=== PATIENT | female | born 1990 | race African-American/Black ===

== ENCOUNTER 2016-11-14 14:29 | Inpatient (IN) | payer SELFPAY ==
[2016-11-14 15:39] LABS: BASOPHILS 0.1 % (0-2); EOSINOPHILS 0.4 % (0-7); HEMATOCRIT 33.2 % (36.0-48.0); HEMOGLOBIN 10.9 g/dL (12-16); IMMATURE GRANULOCYTES 0.2 % (0-5); LYMPHOCYTES 6.7 % (15-50); MCH 26.7 pg (26.0-34.0); MCHC 32.8 g/dL (31.0-37.0); MCV 81.4 fL (80.0-100.0); MEAN PLATELET VOLUME 9.4 fL (7.4-10.4); MONOCYTES 5.2 % (2-11); NEUTROPHILS 87.4 % (40-80); PLATELET COUNT 245 10x3/uL (130-400); RBC 4.08 10x6/uL (4.00-5.40); RDW 18.3 % (11.5-14.5); WBC 10.4 10x3/uL (4.8-10.8)
[2016-11-14 15:56] LABS: ALBUMIN 3.3 g/dL (3.4-5.0); ALKALINE PHOSPHATASE 99 U/L (46-116); ALT (SGPT) 109 U/L (10-68); BILIRUBIN - TOTAL 0.37 mg/dL (0.2-1.3); CALC OSMOLALITY 275 mosm/kg (275-300); CALCIUM 8.5 mg/dL (8.5-10.1); CARBON DIOXIDE 22.8 mmol/L (21.0-32.0); CHLORIDE - SERUM 104 mmol/L (98-107); CREATININE - SERUM 0.8 mg/dL (0.6-1.3); GLUCOSE 129 mg/dL (74-106); POTASSIUM - SERUM 3.6 mmol/L (3.5-5.1); PROTEIN - SERUM 7.5 g/dL (6.4-8.2); SODIUM 138 mmol/L (136-145); UREA NITROGEN 8 mg/dL (7-18); eGFR NON AFRICAN AMERICAN > 90 mL/min (90-120)
[2016-11-14 17:05] LABS: APPEARANCE CLEAR (CLEAR); COLOR YELLOW (YELLOW); NITRITE NEGATIVE (NEGATIVE); SPECIFIC GRAVITY 1.015 (1.005-1.020)
[2016-11-14 17:06] LABS: BILIRUBIN NEGATIVE (NEGATIVE); GLUCOSE NEGATIVE (NEGATIVE); KETONE NEGATIVE (NEGATIVE); PROTEIN NEGATIVE (NEGATIVE); UROBILINOGEN NORMAL (NORMAL)
[2016-11-14 17:09] LABS: UDS - AMPHET NEGATIVE QUAL (NEGATIVE); UDS - BARB NEGATIVE QUAL (NEGATIVE); UDS - BENZO NEGATIVE QUAL (NEGATIVE); UDS - COCAINE NEGATIVE QUAL (NEGATIVE); UDS - OPIATE NEGATIVE QUAL (NEGATIVE); UDS - PCP NEGATIVE QUAL (NEGATIVE); UDS - THC NEGATIVE QUAL (NEGATIVE)
[2016-11-14 17:15] LABS: EPITHELIAL CELLS 0-5 /hpf (0-5); RED CELLS - URINE 0-5 /hpf (0-5); WHITE CELLS - URINE 0-5 /hpf (0-5)
[2016-11-14 17:16] LABS: BACTERIA FEW /hpf (NONE SEEN)
[2016-11-14 17:20] LABS: HCG URINE NEGATIVE (NEGATIVE)
[2016-11-14] MEDS ORDERED: ORTHO TRI-7 DAYSX1 PO (17:52)
[2016-11-14] MEDS ORDERED: FERROUS SULFAT325 MG PO (17:54)
[2016-11-14 17:56] LABS: T4 THYROXIN - FREE 1.05 ng/dL (0.76-1.46); T4 THYROXINE 12.6 ug/dL (4.7-13.3); THYROID STIMULATING HORMONE 1.08 uIU/mL (0.36-3.74)
--- NOTE | 2016-11-14 18:02 | NUR ---
RECIVED TO ROOM 2120 FROM ER PER WC. ADMIT ASSESSMENT PER RN
[2016-11-14 18:30] VITALS: BP 131/73; BMI 42.0
--- NOTE | 2016-11-14 20:00 | NUR ---
PT RESTING IN BED WITH NO DISTRESS. ST PER TELEMETRY, RATE ELEVATES WHEN UP TO BATHROOM. O2 @ 2L/NC WITH NONLABORED RESPIRATIONS., NS @ 100ML/HR INFUSING TO LEFT A/C. REVIEWED PLAN OF CARE. SEE SHIFT ASSESSMENT.
[2016-11-14 20:37] VITALS: BP 140/84
[2016-11-14 22:58] LABS: CKMB 3.9 U/L (0.0-3.6); CREATINE KINASE 96 UL (21-215)
[2016-11-14 23:04] LABS: TROPONIN-I 0.791 ng/mL (0.000-0.060)
[2016-11-14 23:45] VITALS: BP 123/76
[2016-11-15 03:53] VITALS: BP 122/74
[2016-11-15 05:13] LABS: CKMB 3.4 U/L (0.0-3.6); CREATINE KINASE 99 UL (21-215)
[2016-11-15 05:33] LABS: TROPONIN-I 0.413 ng/mL (0.000-0.060)
--- NOTE | 2016-11-15 07:43 | NUR ---
ASSESSMENT DONE. DENIES NEEDS.
[2016-11-15 08:00] VITALS: BP 128/77
--- NOTE | 2016-11-15 09:25 | NUR ---
UP TO BR. RESP UL ON 02 2L NC. NO NEEDS INDICATED AT THIS TIME. WILL MONITOR.
[2016-11-15 12:00] VITALS: BP 137/69
--- NOTE | 2016-11-15 14:45 | NUR ---
ALERT AND ORIENTED X4. RESTING IN BED. DENIES PAIN. TOOK HOME BIRTHCONTROL PILLS. LT AC NS INFUSING AT 50mL/HR. SINUS TACH 103bpm ON TELEMETRY. TECH IN ROOM TO INITIATE VENOUS DOPLER PER ORDER. BED LOCKED AND LOW. CALL LIGHT IN REACH. TWO SIDERAIL UP. RECIEVES LOVENOX INJ. NO SCDs.
[2016-11-15 16:00] VITALS: BP 119/80
[2016-11-15 19:00] VITALS: BP 134/88
[2016-11-16] VITALS: BP 125/84
[2016-11-16 04:00] VITALS: BP 127/72
[2016-11-16 05:20] LABS: BASOPHILS 0.3 % (0-2); EOSINOPHILS 6.2 % (0-7); HEMATOCRIT 30.1 % (36.0-48.0); HEMOGLOBIN 9.7 g/dL (12-16); IMMATURE GRANULOCYTES 0.2 % (0-5); LYMPHOCYTES 30.8 % (15-50); MCH 26.5 pg (26.0-34.0); MCHC 32.2 g/dL (31.0-37.0); MCV 82.2 fL (80.0-100.0); MEAN PLATELET VOLUME 9.4 fL (7.4-10.4); MONOCYTES 8.1 % (2-11); NEUTROPHILS 54.4 % (40-80); PLATELET COUNT 220 10x3/uL (130-400); RBC 3.66 10x6/uL (4.00-5.40); RDW 18.4 % (11.5-14.5)
[2016-11-16 05:26] LABS: WBC 5.8 10x3/uL (4.8-10.8)
[2016-11-16 05:29] LABS: APTT 31.7 SECONDS (22.8-39.4); INR 1.1 (0.85-1.17); PROTIME 14.1 SECONDS (11.6-15.0)
[2016-11-16 05:43] LABS: ALBUMIN 2.8 g/dL (3.4-5.0); ALKALINE PHOSPHATASE 75 U/L (46-116); ALT (SGPT) 96 U/L (10-68); CALC OSMOLALITY 277 mosm/kg (275-300); CALCIUM 8.2 mg/dL (8.5-10.1); CARBON DIOXIDE 24.8 mmol/L (21.0-32.0); CHLORIDE - SERUM 107 mmol/L (98-107); CREATININE - SERUM 0.7 mg/dL (0.6-1.3); GLUCOSE 84 mg/dL (74-106); MAGNESIUM - SERUM 2.1 mg/dL (1.8-2.4); PHOSPHOROUS 4.3 mg/dL (2.5-4.9); POTASSIUM - SERUM 3.7 mmol/L (3.5-5.1); PROTEIN - SERUM 6.2 g/dL (6.4-8.2); SODIUM 141 mmol/L (136-145); UREA NITROGEN 6 mg/dL (7-18); eGFR NON AFRICAN AMERICAN > 90 mL/min (90-120)
[2016-11-16 08:23] VITALS: BP 139/98
--- NOTE | 2016-11-16 09:26 | NUR ---
TELEMETRY SR. CALL LIGHT IN REACH. WILL CONT. PLAN OF CARE.
[2016-11-16 11:59] VITALS: BP 123/84
[2016-11-16 12:17] LABS: ACLA - IGG AB <9 GPL U/mL (0-14); ACLA - IGM AB <9 MPL U/mL (0-12); HAPTOGLOBIN 205 mg/dL (34-200)
[2016-11-16 16:23] VITALS: BP 140/84
--- NOTE | 2016-11-16 17:03 | NUR ---
Patient Name: RAVEN CASH Admission Status: ER Accout number: [id number] Admission Date: 11-15-2016 : 1990 Admission Diagnosis: Attending: Anastacio Ruvalcaba Current LOS: 1 Anticipated DC Date: Planned Disposition: HOME Primary Insurance: UNINSURED DISCOUNT PLAN Discharge Planning Comments: CM RECEIVED ORDER TO CHECK ON PT'S PRESCRIPTION DRUG COVERAGE. PT REPORTS LIVING AT HOME WITH HER ADULT SISTER, IS INDEPENDENT IN HER CARE, HAS NO MEDICAL EQUIPMENT AND NO OUTSIDE SERVICES ASSISTING IN THE HOME. PT PLANS TO DISCHARGE HOME WITH HER SISTER. PT'S PRIMARY DOCTOR IS DR. MILLER AT [facility]. PT HAS NO INSURANCE AND THE HOSPITAL HAS SUBMITTED A MEDICAID APPLICATION FOR COVERAGE DURING THIS HOSPITAL VISIT. CM PROVIDED PT WITH A 30 DAY FREE ELIQUIS CARD AND A $10 COPAY CARD FOR ELIQUIS. PT REPORTS SHE CAN AFFORD $10 PER MONTH FOR ELIQUIS. PT WILL REQUIRE A SEPERATE PRESCRIPTION FOR 30 DAYS OF ELIQUIS TO USE THE 30 DAY FREE CARD. PT ALSO HAS THE $10 COPAY CARD FOR ELIQUIS AND REPORTS ABILITY TO AFFORD $10 PER MONTH. Polisher Numeral: Willian Hua
--- NOTE | 2016-11-16 19:34 | NUR ---
PT RESTING IN BED. SPOKE ABOUT MEDICATIONS AND GAVE EDUCATION AND INFORMATION PT WANTED AND ASKED. PT DENIES ANY NEEDS OR CONCERNS AT THIS TIME. IV ON LEFT FOREARM. S/L DRSG CDI. PT DENIES ANY NEEDS AT THIS TIME. NO S/S OF DISTRESS. CALL LIGHT IN REACH. WILL CPOC
[2016-11-16 20:00] VITALS: BP 122/84
--- NOTE | 2016-11-16 21:49 | NUR ---
NORCO GIVEN FOR SLIGHT PAIN IN CHEST WHEN LAY ON RIGHT SIDE IT INCREASES. PT STATES SHE HAS BEEN HAVING THIS PAIN SINCE ADMITED. PT IV IN LEFT ARM SHE SAYS IS TENDER AND PREVENTS HER FROM SLEEPING ON LEFT SIDE. PT IS AAO X4. VERY KIND AND CALM. DENIES ANY QUESTIONS OR CONCERNS AT THIS MOMENT. PT HAS NO S/S OF DISTRESS. WILL CPOC
[2016-11-17] VITALS: BP 123/70
--- NOTE | 2016-11-17 03:26 | NUR ---
PT ASLEEP. RESPIRATIONS EVEN AND UNLABORED. NORMAL SINUS 82 ON MONITOR. PT BED LOW AND CALL LIGHT IN REACH. WILL CPOC
[2016-11-17 04:00] VITALS: BP 114/77
[2016-11-17 04:43] LABS: BASOPHILS 0.2 % (0-2); EOSINOPHILS 4.6 % (0-7); HEMATOCRIT 28.3 % (36.0-48.0); HEMOGLOBIN 9.2 g/dL (12-16); IMMATURE GRANULOCYTES 0.5 % (0-5); LYMPHOCYTES 28.2 % (15-50); MCH 26.7 pg (26.0-34.0); MCHC 32.5 g/dL (31.0-37.0); MONOCYTES 7.1 % (2-11); NEUTROPHILS 59.4 % (40-80); PLATELET COUNT 231 10x3/uL (130-400); RBC 3.45 10x6/uL (4.00-5.40); RDW 18.5 % (11.5-14.5); WBC 5.5 10x3/uL (4.8-10.8)
[2016-11-17 05:06] LABS: CALC OSMOLALITY 277 mosm/kg (275-300); CALCIUM 7.9 mg/dL (8.5-10.1); CARBON DIOXIDE 27.1 mmol/L (21.0-32.0); CHLORIDE - SERUM 106 mmol/L (98-107); CREATININE - SERUM 0.7 mg/dL (0.6-1.3); GLUCOSE 81 mg/dL (74-106); POTASSIUM - SERUM 3.8 mmol/L (3.5-5.1); SODIUM 141 mmol/L (136-145); UREA NITROGEN 7 mg/dL (7-18); eGFR NON AFRICAN AMERICAN > 90 mL/min (90-120)
--- NOTE | 2016-11-17 05:31 | NUR ---
PT WAKES WITH MINIMAL SOUND. PT STATES SHE FEELS TIRED LIKE SHE DID NOT GET MUCH SLEEP. PT DENIES ANY NEEDS AT THIS TIME. NO S/S OF DISTRESS. WILL CPOC
[2016-11-17 05:37] LABS: INR 1.24 (0.85-1.17); PROTIME 15.5 SECONDS (11.6-15.0)
--- NOTE | 2016-11-17 07:40 | NUR ---
ASSESSMENT COMPLETED. O2 AT 2 L/M PER NC. TELEMERTY SHOWS SR 84. LEFT AC SL. DENIES ANY NEEDS. CALL LIGHT IN REACH WITH SR UP
[2016-11-17 08:02] VITALS: BP 108/74
--- NOTE | 2016-11-17 11:03 | NUR ---
RESTIN IN BED CO FATIGUE. MONITOR SHOWS NSR @ RATE OF 97. WILL CONTINUE TO MONITOR.
[2016-11-17 12:00] VITALS: BP 134/82
[2016-11-17 12:15] LABS: LUPUS - INTERPRETATION Comment: (()); LUPUS - THROMBIN TIME 16.7 sec (0.0-23.0); LUPUS - dRVVT 29.9 sec (0.0-47.0); PTT-LA 34.4 sec (0.0-51.9)
--- NOTE | 2016-11-17 12:59 | NUR ---
UP IN BED. DENIES ANY NEEDS. TELEMERTY SHOW SB AT 54
[2016-11-17 16:00] VITALS: BP 101/80
--- NOTE | 2016-11-17 17:46 | NUR ---
LYING QUIETLY. DENIES ANY NEEDS. SR UP WITH CALL LIGHT IN REAC. WILL MONITOR
[2016-11-17 20:00] VITALS: BP 120/78
--- NOTE | 2016-11-17 20:12 | NUR ---
PT AWAKE, ALERT, ORIENTED, SITTING UP IN BED, HOB 40 DEGREES. PT IS C/O HER LEFT FOREARM/AC IV CAUSING DISCOMFORT. IV FLUSHES WITHOUT ANY DIFFICULTY, SWELLING OR INCREASED PAIN. I DISCUSSED THE OPTION TO LEAVE THE IV IN OR RESITE, BUT AT THIS TIME WE WILL CONTINUE TO MONITOR IT CLOSELY. PT DENIES ANY OTHER NEEDS. CONTINUE TO MONITOR CLOSELY. BED LOW, CALL LIGHT IN REACH, SIDE RAILS X 2.
--- NOTE | 2016-11-17 22:02 | NUR ---
PT PUT VASELINE IN HER NOSE R/T INCREASED MUCOSAL DRYNESS FROM HER O2 VIA NC. I EXPLAINED TO PT THAT WE CANNOT USE VASELINE AROUND O2 R/T THE DANGERS OF IT BEING COMBUSTIBLE. PT WAS THEN ASKING ABOUT SOMETHING TO HELP MOISTURIZE HER NASAL CAVITY. I ADDED HUMIDITY TO HER O2 FOR HER COMFORT. PT IS AT 1LPM AT THIS TIME. WILL CONTINUE TO MONITOR CLOSELY.
[2016-11-18 04:00] VITALS: BP 139/85
[2016-11-18 05:09] LABS: BASOPHILS 0.3 % (0-2); EOSINOPHILS 5.3 % (0-7); HEMATOCRIT 28.9 % (36.0-48.0); HEMOGLOBIN 9.3 g/dL (12-16); IMMATURE GRANULOCYTES 0.2 % (0-5); LYMPHOCYTES 21.9 % (15-50); MCH 26.4 pg (26.0-34.0); MCHC 32.2 g/dL (31.0-37.0); MCV 82.1 fL (80.0-100.0); MONOCYTES 7.8 % (2-11); NEUTROPHILS 64.5 % (40-80); PLATELET COUNT 233 10x3/uL (130-400); RBC 3.52 10x6/uL (4.00-5.40); WBC 6.4 10x3/uL (4.8-10.8)
[2016-11-18 05:13] LABS: PROTEIN S - FREE 57 % (57-157); PROTEIN S - FUNCTIONAL 76 % (63-140); PROTEIN S - TOTAL 74 % (60-150)
[2016-11-18 05:34] LABS: CALC OSMOLALITY 275 mosm/kg (275-300); CALCIUM 8.3 mg/dL (8.5-10.1); CARBON DIOXIDE 26.3 mmol/L (21.0-32.0); CHLORIDE - SERUM 104 mmol/L (98-107); CREATININE - SERUM 0.7 mg/dL (0.6-1.3); GLUCOSE 84 mg/dL (74-106); POTASSIUM - SERUM 4.1 mmol/L (3.5-5.1); SODIUM 140 mmol/L (136-145); UREA NITROGEN 8 mg/dL (7-18); eGFR NON AFRICAN AMERICAN > 90 mL/min (90-120)
--- NOTE | 2016-11-18 05:50 | NUR ---
PT RESTING COMFORTABLY, RESPIRATIONS EVEN AND UNLABORED. PT IS EASILY ROUSABLE TO VERBAL STIMULI. PT DENIES ANY DISCOMFORT OR PAIN AT THIS TIME. WILL CONTINUE TO MONITOR CLOSELY. BED LOW, CALL LIGHT IN REACH, SIDE RAILS X 2, HOB 10 DEGREES.
[2016-11-18 08:28] VITALS: BP 121/79
[2016-11-18 11:51] VITALS: BP 129/85
[2016-11-18 15:59] VITALS: BP 129/80
--- NOTE | 2016-11-18 19:00 | NUR ---
RECEIVED REPORT AND ASSUMED PT CARE FROM DAY SHIFT RN @ THIS TIME.
[2016-11-18 20:00] VITALS: BP 144/80
[2016-11-19] VITALS: BP 132/76
[2016-11-19 04:00] VITALS: BP 122/71
[2016-11-19 04:42] LABS: BASOPHILS 0.2 % (0-2); EOSINOPHILS 5.1 % (0-7); HEMATOCRIT 27.9 % (36.0-48.0); HEMOGLOBIN 9.1 g/dL (12-16); IMMATURE GRANULOCYTES 0.2 % (0-5); LYMPHOCYTES 23.8 % (15-50); MCH 26.8 pg (26.0-34.0); MCHC 32.6 g/dL (31.0-37.0); MCV 82.3 fL (80.0-100.0); MEAN PLATELET VOLUME 9.1 fL (7.4-10.4); MONOCYTES 8.5 % (2-11); NEUTROPHILS 62.2 % (40-80); PLATELET COUNT 254 10x3/uL (130-400); RBC 3.39 10x6/uL (4.00-5.40); RDW 17.6 % (11.5-14.5); WBC 6.2 10x3/uL (4.8-10.8)
[2016-11-19 05:06] LABS: CALC OSMOLALITY 277 mosm/kg (275-300); CALCIUM 8.5 mg/dL (8.5-10.1); CARBON DIOXIDE 25.7 mmol/L (21.0-32.0); CHLORIDE - SERUM 106 mmol/L (98-107); CREATININE - SERUM 0.7 mg/dL (0.6-1.3); GLUCOSE 85 mg/dL (74-106); POTASSIUM - SERUM 3.8 mmol/L (3.5-5.1); SODIUM 141 mmol/L (136-145); UREA NITROGEN 8 mg/dL (7-18); eGFR NON AFRICAN AMERICAN > 90 mL/min (90-120)
[2016-11-19 08:00] VITALS: BP 102/60
[2016-11-19] MEDS ORDERED: ELIQUIS5 MG PO (12:47)
--- NOTE | 2016-11-19 16:24 | NUR ---
IV AND TELEMETRY DCD. DC PLANS GIVEN. UNDERSTANDING VOICED. ESCORTED TO CAR BY W/C.
--- NOTE | 2016-11-20 09:38 | DS ---
PATIENT:RAVEN CASH :[birth year] MEDICAL RECORD: [id number] DISCHARGE SUMMARY ADMISSION DATE: 11/15/16 DISCHARGE DATE: 11/19/16 DATE OF ADMISSION: 11/15/2016 DATE OF DISCHARGE: 11/19/2016 ADMISSION DIAGNOSES: Reported syncopal event, chest discomfort, elevated troponin. 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 HOSPITAL COURSE: The patient was admitted through the Emergency Room to Dr. Ruvalcaba as unassigned medicine. She does not have a primary care. She does see Dr. Rizzo for her dysfunctional uterine bleeding. With the elevated troponin, Dr. Red, cardiology was consulted as well. D-dimer was obtained, found to be significantly elevated. CTA of the chest, PE protocol was obtained showing the bilateral pulmonary emboli. The patient was started on anticoagulation therapy, had excellent response on home medications. manager spanish obtained approval and coupon for long-term therapy. Hematology, Dr. Hernandez was consulted. Pulmonology, Dr. Hutton consulted as well. The patient's chest discomfort has resolved. Her tachycardia has resolved. She had been cleared for discharge by all specialists. We will follow up with Dr. Hernandez. We will also follow up with Dr. Ruvalcaba in 10 to 14 days. Review medications. DISPOSITION: The patient is discharged home in significantly improved condition. PHYSICAL EXAMINATION: VITAL SIGNS ON DISCHARGE: Temperature 98.1, heart rate 80, respirations 18, blood pressure is 102/60, O2 sat is 97% on room air. GENERAL: Alert and oriented, no present distress. HEART: Regular rate and rhythm. LUNGS: Clear. Breathing is nonlabored. ABDOMEN: Soft. EXTREMITIES: Present times 4. NEUROLOGIC: Intact. LABORATORY DATA: CBC on discharge; white count 6.2, hemoglobin stable at 9.1, hematocrit 27.9, platelets 254. Chemistry is normal. The patient will follow up with Dr. Rizzo, her machine shop apprentice. They discussed treatment for dysfunctional uterine bleeding. We will follow up with Dr. Hernandez, hematology. Review medications. Discuss long-term treatment options and follow up with Dr. Ruvalcaba one time for a hospital followup. DISCHARGE INSTRUCTIONS: The patient also understands to return to the ER with any resumption or worsening symptoms. TRANSINT:[id number] Voice Confirmation ID: [id number] DOCUMENT ID: [id number] DISCHARGE SUMMARY REPORT [id number] RAVEN CASH, MARILEE MENSAH at 0938 CC: [id number] DICTATION DATE: 11/19/16 1255 GENERAL SUPERVISOR: 11/20/16 0129 DIS IN 11/19/16 [place] [id number] [place] [id number]
[2016-11-20 18:10] LABS: FACTOR II DNA ANALYSIS Negative (())
[2016-11-21 03:10] LABS: PROTEIN C - ANTIGEN 77 % (60-150); PROTEIN C - FUNCTIONAL 126 % (73-180)
[2016-11-23 19:11] LABS: FACTOR II DNA ANALYSIS Negative (())
--- NOTE | 2016-11-29 10:07 | EC ---
PATIENT:RAVEN CASH DATE OF SERVICE: 11/15/16 SEX: F MEDICAL RECORD: [id number] DATE OF : [birth year] LOCATION:D. D.212 AGE OF PATIENT: 26 ADMISSION DATE: 11/15/16 REFERRING PHYSICIAN: INTERPRETING PHYSICIAN: ZA RED MD ECHOCARDIOGRAM REPORT ECHO CHARGES 4 ECHO COMPLETE CLINICAL DIAGNOSIS: SYNCOPE/ELEVATED TROPONIN ECHOCARDIOGRAPHIC MEASUREMENTS (adult normal given) AC root (d.<3.7cm) 3.0 cm LV Septum d (<1.2 cm> 1.3 cm Valve Excursion 1.7 cm LV Septum (systole) 1.8 cm Left Atria (s.<4.0cm> 3.4 cm LVPW d(<1.2cm) 1.3 cm RV (d.<2.3cm) 3.7 cm LVPW (sytole) 1.7 cm LV diastole(<5.6CM) 4.9 cm MV E-F(>70mm/sec) cm LV systole 2.8 cm LVOT Diameter 1.8 cm MV exc.(>10mm) cm Est.ejection fraction (50-75%) % Pericardial Effusion N DOPPLER: LVIT cm/sec A 100 cm/sec E 68.0 cm/sec LA cm/sec RVSP 67.2 mmHg LVOT 115 cm/sec AOP1/2T m/s Asc. Ao 165 cm/sec RVOT 76.0 cm/sec RA cm/sec PA 110 cm/sec AV Gradient Peak 11.0 mmHg AV Mean 5.0 mmHg AV Area 1.8 cm MV Gradient Peak 5.7 mmHg MV Mean 2.5 mmHg MV Area cm COMMENTS: Plastic Molder: 1 [place] Track Surfacing Machine Operator: 4 Dr. Red TAPE# PACS DATE OF SERVICE: 11/15/2016 PROCEDURE: Transthoracic echocardiogram. FINDINGS: 1. Left ventricle is difficult to visualize, but appears to be hyperdynamic with normal function, EF of 60% to 65%. 2. The mitral valve is difficult to see, but there is no gross valvular abnormality. 3. The left atrium is normal size and normal function. ECHOCARDIOGRAM REPORT [id number] RAVEN CASH 4. The right atrium appears to be normal size and normal function. 5. The right ventricle is dilated with elevations in the right ventricular systolic pressures of 60 to 70 mmHg. 6. Tricuspid valve has [id number] tricuspid regurgitation. 7. The IVC was not well demonstrated on this exam. CONCLUSIONS: The patient has normal left-sided structures, dilated right-sided structures with elevations in the right ventricular systolic pressures consistent with possible acute pressure overload. TRANSINT:[id number] Voice Confirmation ID: [id number] DOCUMENT ID: [id number] 11/27/2016 Edited to correct date of service, dm. ZA RED MD at 1007 CC: [id number] DICTATION DATE: 11/16/16 0753 LANG PATH THERAPIST: 11/16/16 0811 DIS IN 11/19/16 [facility] [address] [place] [address]
== END 2016-11-19 16:24 | disposition home or self-care (01) | DRG 814 ==
LOC: D.ER 14:29 → OBSVTIME 17:22 → D.M2 17:22 → D.SDCHOLD 11-15 17:17 → D.M2 11-15 17:19
PROVIDERS: Emergency Medicine; Family Medicine; Internal Medicine Hematology & Oncology; Nurse Practitioner Family; ADMIT Family Medicine
DX: D68.59 Other primary thrombophilia (principal); I26.99 Other pulmonary embolism without acute cor pulmonale; I82.432 Acute embolism and thrombosis of left popliteal vein; J98.11 Atelectasis; D62 Acute posthemorrhagic anemia; N92.1 Excessive and frequent menstruation with irregular cycle; E28.0 Estrogen excess; I27.20 Pulmonary hypertension, unspecified; I07.1 Rheumatic tricuspid insufficiency; R00.0 Tachycardia, unspecified; Z87.891 Personal history of nicotine dependence

== ENCOUNTER 2016-12-06 16:10 | Emergency (ER) | payer MEDICAID ==
[~2016-12-06 16:10] MED LIST: ELIQUIS5 MG PO; FERROUS SULFAT325 MG PO; ORTHO TRI-7 DAYSX1 PO
[2016-12-06 17:37] LABS: APPEARANCE CLEAR (CLEAR); BILIRUBIN NEGATIVE (NEGATIVE); COLOR YELLOW (YELLOW); GLUCOSE NEGATIVE (NEGATIVE); KETONE NEGATIVE (NEGATIVE); NITRITE NEGATIVE (NEGATIVE); PROTEIN NEGATIVE (NEGATIVE); UROBILINOGEN NORMAL (NORMAL)
[2016-12-06 17:57] LABS: BASOPHILS 0.2 % (0-2); EOSINOPHILS 2.2 % (0-7); HEMATOCRIT 29.5 % (36.0-48.0); HEMOGLOBIN 9.3 g/dL (12-16); IMMATURE GRANULOCYTES 0.1 % (0-5); LYMPHOCYTES 12.5 % (15-50); MCH 25.5 pg (26.0-34.0); MCHC 31.5 g/dL (31.0-37.0); MCV 80.8 fL (80.0-100.0); MONOCYTES 6.3 % (2-11); NEUTROPHILS 78.7 % (40-80); PLATELET COUNT 333 10x3/uL (130-400); RBC 3.65 10x6/uL (4.00-5.40); RDW 15.6 % (11.5-14.5); WBC 8.6 10x3/uL (4.8-10.8)
[2016-12-06 18:10] LABS: ALBUMIN 3.4 g/dL (3.4-5.0); ALKALINE PHOSPHATASE 85 U/L (46-116); ALT (SGPT) 24 U/L (10-68); BILIRUBIN - TOTAL 0.24 mg/dL (0.2-1.3); CALC OSMOLALITY 274 mosm/kg (275-300); CALCIUM 8.5 mg/dL (8.5-10.1); CARBON DIOXIDE 25.2 mmol/L (21.0-32.0); CHLORIDE - SERUM 104 mmol/L (98-107); CREATININE - SERUM 0.6 mg/dL (0.6-1.3); GLUCOSE 88 mg/dL (74-106); POTASSIUM - SERUM 3.7 mmol/L (3.5-5.1); PROTEIN - SERUM 7.2 g/dL (6.4-8.2); SODIUM 139 mmol/L (136-145); UREA NITROGEN 8 mg/dL (7-18); eGFR NON AFRICAN AMERICAN > 90 mL/min (90-120)
== END 2016-12-06 18:35 | disposition home or self-care (01) ==
LOC: D.ER 16:10
PROVIDERS: Emergency Medicine; Physician Assistant Medical
DX: R55 Syncope and collapse (principal)

== ENCOUNTER → 2017-07-06 14:14 | Outpatient (CLI) | payer MEDICAID | END | disposition home or self-care (01) | LOC: D.RT 14:00 | DX: I27.20 Pulmonary hypertension, unspecified (principal) ==

== ENCOUNTER → 2018-03-29 08:00 | Outpatient (CLI) | payer MEDICAID | END | disposition home or self-care (01) | LOC: D.MAMMO 08:00 | DX: N63.13 Unspecified lump in the right breast, lower outer quadrant (principal) ==

== ENCOUNTER → 2018-10-30 12:11 | Outpatient (CLI) | payer MEDICAID | END | disposition home or self-care (01) | LOC: D.RT 12:11 | PROVIDERS: ATTEND Internal Medicine Pulmonary Disease | DX: I82.402 Acute embolism and thrombosis of unspecified deep veins of left lower extremity (principal); J45.909 Unspecified asthma, uncomplicated ==